=== PATIENT | female | born 1970 | race Caucasian/White ===

== ENCOUNTER → 2018-01-08 13:02 | Oncology outpatient (ONC) | payer OTHER, SELFPAY ==
--- NOTE | 2018-01-08 13:16 | P.PNONC_ITS ---
PN -Subjective Interval history: Hx of Present illness The patient is a 47 year old Female who is being seen in the clinic 01/08/2018. 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 Patient presents today for her 1 year clinical evaluation. During interval she' s done well offering no complaints specifically denying any headaches visual changes focal bone pains nausea vomiting diarrhea constipation Fatigue or weight fluctuations. No new pain. No new lumps or bumps. Most recent mammogram was at [facility] January 02, 2018 without evidence of malignancy, recommendation is to repeat in 1 year. She is scheduled to consult with Jonah JALLOH for her baseline colonoscopy. Past Medical History The patient's past medical history is significant for: 1. Right-sided DCIS, in clinical remission since 2010, with her last imaging study dated 11/27/2014. Bilateral screening mammogram at [facility] showing no evidence of worrisome disease recurrence. 2. 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 3. Depression. 4. Restless leg syndrome. Home Medications and Allergies Home Medications Medication Instructions Recorded Confirmed Type bupropion HCl [Wellbutrin SR] 450 mg PO QDAY #0 12/30/16 History levocetirizine [Xyzal] 01/08/18 History ropinirole 0.5 mg PO BEDTIME 01/08/18 01/08/18 History Exam - Constitutional positive no acute distress - Routine HEENT Exam Eye: Present: conjunctivae pink. Absent: conjunctival icterus, scleral injection ENT: Present: mucous membranes moist, oropharynx clear - Routine Neck Exam Present: supple. Absent: lymphadenopathy - Routine Chest/Breast/Axilla Exam Chest wall exam standard: Absent: tenderness, mass Breast: Absent: tenderness, induration, mass Axillae: Absent: lymphadenopathy, mass, tenderness - Routine Respiratory Exam Present: Clear to auscultation bilaterally. Absent: rales, rhonchi, wheezes - Routine Cardiovascular Exam Present: RRR, S1, S2. Absent: murmur, gallop, rubs, JVD - Routine Abdominal Exam Present: soft, normoactive bowel sounds. Absent: tenderness, distended, organomegaly, mass - Routine Extremities Exam Absent: edema, calf tenderness - Routine Skin Exam Present: intact, normal turgor. Absent: petechiae, rash - Routine Neurological Exam Present: alert, oriented X3 - Routine Psychiatric Exam Present: normal affect Assessment and Plan (1) DCIS (ductal carcinoma in situ) of breast Current visit: Yes Status: Acute The patient is a 47-year-old female showing no clinical signs or symptoms of breast cancer recurrence. Annual bilateral screening mammogram at [facility] January 02, 2018 was without evidence of malignancy, recommendation is to repeat in 1 year. Pt is scheduled for GI consult in [place] for basline colonoscopy. RTC in 1 year , no labs indicated. Cont with annual bilateral screening mammograms
[2018-01-08 13:21] VITALS: BP 131/83; PULSE 73; RESP 18; TEMP 36.8; O2SAT 98
--- NOTE | 2018-12-31 11:28 | ONC.SCHED ---
Pt. states that she has moved out of the area and wishes to cancel all future appts with us.
== END ==
LOC: ONC 13:04
PROVIDERS: PCP Nurse Practitioner; Visit Provider Nurse Practitioner Gerontology
DX: Z09 Encounter for follow-up examination after completed treatment for conditions other than malignant neoplasm (principal); Z86.000 Personal history of in-situ neoplasm of breast
CPT/HCPCS: 99214